=== PATIENT | male | born 1945 | race Hispanic/Latino ===

== ENCOUNTER 2017-01-11 22:11 | Emergency (ER) | payer MEDICARE ==
[2017-01-12 00:48] LABS: Bilirubin,Urine NEG (Negative); Blood,Urine NEG (Negative); Ketones,Urine TR mg/dL (Negative); Leukocyte Esterase,Urine NEG (Negative); Mucus,Urine FEW /HPF; Nitrite,Urine NEG (Negative); Protein,Urine <15 mg/dL mg/dL (Negative); Urobilinogen,Urine < 2.0 mg/dL (<2.0)
[2017-01-12 04:49] LABS: Basophils % (Auto) 0.9 % (0.0-1.8); Eosinophils % (Auto) 2.8 % (0.0-4.3); Hemoglobin 15.3 gm/dl (11.8-15.2); Mean Corpuscular HGB Conc 33 % (32-34); Mean Corpuscular Hemoglobin 29 pg (28-32); Mean Corpuscular Volume 87 fl (84-94); Red Blood Count 5.32 M/mm3 (3.65-5.03); Red Cell Distribution Width 14.3 % (13.2-15.2); White Blood Count 6.8 K/mm3 (4.5-11.0)
[2017-01-12 05:11] LABS: Alanine Aminotransferase 15 units/L (7-56); Albumin 4.2 g/dL (3.9-5); Albumin/Globulin Ratio 1.6 %; Alkaline Phosphatase 81 units/L (35-129); Anion Gap 20 mmol/L; BUN/Creatinine Ratio 11; Blood Urea Nitrogen 10 mg/dL (9-20); Calcium 8.9 mg/dL (8.4-10.2); Carbon Dioxide 25 mmol/L (22-30); Chloride 97.1 mmol/L (98-107); Glucose 100 mg/dL (75-100); Lipase 18 units/L (13-60); Potassium 3.7 mmol/L (3.6-5.0); Sodium 138 mmol/L (137-145); Total Protein 6.9 g/dL (6.3-8.2)
[2017-01-12 05:16] LABS: Platelet Count 135 K/mm3 (140-440)
[2017-01-12] MEDS ORDERED: ZOFRAN IV ONE (06:54)
[2017-01-12] MEDS ORDERED: NACL 0.9% 1000 ML 1,000 ML IV ONE (06:54)
[2017-01-12] MEDS ORDERED: NACL ONE (07:21)
--- NOTE | 2017-01-12 07:58 | Emergency Department Report ---
ED Abdominal Pain HPI - General Chief Complaint: Abdominal Pain Stated Complaint: ABD PAIN Time Seen by Provider: 01/12/17 06:03 Source: patient Mode of arrival: Ambulatory Limitations: No Limitations - History of Present Illness Initial Comments: 71-year-old male with a past medical history previous CVA with residual left arm weakness, seizures, enlarged prostate, previous cholecystectomy and right inguinal hernia repair presents to Hospital complaints of nausea and possible constipation. Patient denies actual abdominal pain. He's had been nauseated with intermittent vomiting that started this morning. Patient can't remember the last time he had a bowel movement. No reports of fever, melena, hematochezia, or hematemesis. Per EMS note patient states he had pain in the center of his stomach that started yesterday. Patient also complains of reflux symptoms. PMD: Dr. Grace - Related Data Home Medications Medication Instructions Recorded Confirmed Last Taken Fluticasone/Vilanterol [Breo 1 each IH QDAY 09/06/16 12/11/16 Unknown Ellipta 100-25 Mcg INH] Previous Rx's Medication Instructions Recorded Last Taken Type Tamsulosin [Flomax] 0.4 mg PO QDAY #30 capsule 03/02/15 Unknown Rx levETIRAcetam [Keppra TAB] 750 mg PO BID #60 tablet 03/02/15 Unknown Rx Aspirin [Aspirin BABY CHEW TAB] 81 mg PO QDAY #30 tab.chew 09/08/16 Unknown Rx HYDROcodone/APAP 5-325 [Gerlaw 1 each PO Q6HR PRN #7 tablet 09/08/16 Unknown Rx 5-325 mg TAB] AtorvaSTATin [Lipitor] 40 mg PO QHS tablet 12/12/16 Unknown Rx Mirtazapine [Remeron] 15 mg PO QHS tablet 12/12/16 Unknown Rx Mag Hydrox/Aluminum Hyd/Simeth 20 ml PO QID PRN #1 bottle 01/12/17 Unknown Rx [Maalox Advanced Suspension] Ondansetron [Zofran Odt] 4 mg PO Q8HR PRN #20 tab.rapdis 01/12/17 Unknown Rx Polyethylene Glycol 3350 [Miralax 17 gm PO QDAY PRN #7 packet 01/12/17 Unknown Rx 3350] Allergies Allergy/AdvReac Type Severity Reaction Status Date / Time nitrofurazone [From Furacin] Allergy Rash Verified 11/20/12 03:43 ED Review of Systems ROS: Stated complaint: ABD PAIN Other details as noted in HPI Comment: All other systems reviewed and negative Other: Constitutional: No fevers chills Eyes: No eye pain visual changes ENT: No ear pain or throat pain Neck: Denies pain Respiratory: Denies cough wheezing shortness of breath Cardiovascular: Denies chest pain, palpitations, syncope GI: As per HPI : Denies dysuria Musculoskeletal: Denies back pain Skin: Denies rash, lesions, erythema Neurologic: Denies headache, numbness, weakness Psychiatric: Denies suicidal ideation, hallucinations ED Past Medical Hx - Past Medical History Previous Medical History?: Yes Hx CVA: Yes (L sided deficits) Hx Seizures: Yes Hx HIV: No Additional medical history: urinary problems at times, enlarged prostate - Surgical History Past Surgical History?: Yes Hx Cholecystectomy: Yes Additional Surgical History: back surgery ankle surgery hernia repairs - Social History Smoking Status: Current Every Day Smoker Substance Use Type: None - Medications Home Medications: Home Medications Medication Instructions Recorded Confirmed Last Taken Type Tamsulosin [Flomax] 0.4 mg PO QDAY #30 capsule 03/02/15 12/08/16 Unknown Rx levETIRAcetam [Keppra TAB] 750 mg PO BID #60 tablet 03/02/15 12/08/16 Unknown Rx Fluticasone/Vilanterol [Breo 1 each IH QDAY 09/06/16 12/11/16 Unknown History Ellipta 100-25 Mcg INH] Aspirin [Aspirin BABY CHEW TAB] 81 mg PO QDAY #30 tab.chew 09/08/16 12/11/16 Unknown Rx HYDROcodone/APAP 5-325 [Gerlaw 1 each PO Q6HR PRN #7 tablet 09/08/16 12/08/16 Unknown Rx 5-325 mg TAB] AtorvaSTATin [Lipitor] 40 mg PO QHS tablet 12/12/16 Unknown Rx Mirtazapine [Remeron] 15 mg PO QHS tablet 12/12/16 Unknown Rx Mag Hydrox/Aluminum Hyd/Simeth 20 ml PO QID PRN #1 bottle 01/12/17 Unknown Rx [Maalox Advanced Suspension] Ondansetron [Zofran Odt] 4 mg PO Q8HR PRN #20 tab.rapdis 01/12/17 Unknown Rx Polyethylene Glycol 3350 [Miralax 17 gm PO QDAY PRN #7 packet 01/12/17 Unknown Rx 3350] ED Physical Exam - General Limitations: No Limitations - Other Other exam information: General: No limitations, patient is alert in no acute distress Head exam: Atraumatic, normocephalic Eyes exam: Normal appearance, nonicteric sclerae ENT: Moist mucous membrane, normal oropharynx Neck exam: Normal inspection, full range of motion, no meningismus nontender Respiratory exam: Clear to auscultation bilateral, no wheezes, rales, crackles Cardiovascular: Normal rate and rhythm, normal heart sounds Abdomen: Soft, nondistended, and nontender, with normal bowel sounds, no rebound, or guarding. Right lower inguinal surgical scar noted Extremity: Full range of motion normal inspection no deformity Back: Normal Inspection, full range of motion, no tenderness Neurologic: Alert, oriented x3, cranial nerves intact, contracted left arm with limited movement secondary to previous CVA. 5/5 right sided upper and lower extremity strength, 4+/5 left lower extremity Psychiatric: normal affect, normal mood Skin: Warm, dry, intact ED Course Vital Signs 01/11/17 01/12/17 01/12/17 22:57 06:35 08:10 Temperature 97.6 F 97.7 F Pulse Rate 96 H 76 Respiratory 18 20 16 Rate Blood Pressure 120/71 Blood Pressure 124/75 [Right] O2 Sat by Pulse 97 98 Oximetry - Reevaluation(s) Reevaluation #1: 01/12/17 08:52 Patient treated with normal saline and Zofran ED Medical Decision Making - Lab Data Result diagrams: 01/11/17 Unknown 01/11/17 Unknown Lab Results 01/11/17 01/11/17 01/12/17 Range/Units Unknown Unknown 00:10 WBC 6.8 (4.5-11.0) K/mm3 RBC 5.32 H (3.65-5.03) M/mm3 Hgb 15.3 H (11.8-15.2) gm/dl Hct 46.0 H (35.5-45.6) % MCV 87 (84-94) fl MCH 29 (28-32) pg MCHC 33 (32-34) % RDW 14.3 (13.2-15.2) % Plt Count 135 L (140-440) K/mm3 Lymph % (Auto) 19.8 (13.4-35.0) % Morton % (Auto) 8.5 H (0.0-7.3) % Eos % (Auto) 2.8 (0.0-4.3) % Baso % (Auto) 0.9 (0.0-1.8) % Lymph # 1.3 (1.2-5.4) K/mm3 Morton # 0.6 (0.0-0.8) K/mm3 Eos # 0.2 (0.0-0.4) K/mm3 Baso # 0.1 (0.0-0.1) K/mm3 Seg Neutrophils % 68.0 (40.0-70.0) % Seg Neutrophils # 4.6 (1.8-7.7) K/mm3 Sodium 138 (137-145) mmol/L Potassium 3.7 (3.6-5.0) mmol/L Chloride 97.1 L (98-107) mmol/L Carbon Dioxide 25 (22-30) mmol/L Anion Gap 20 mmol/L BUN 10 (9-20) mg/dL Creatinine 0.9 (0.8-1.5) mg/dL Estimated GFR > 60 ml/min BUN/Creatinine Ratio 11 % Glucose 100 (75-100) mg/dL Calcium 8.9 (8.4-10.2) mg/dL Total Bilirubin 0.70 (0.1-1.2) mg/dL AST 18 (5-40) units/L ALT 15 (7-56) units/L Alkaline Phosphatase 81 (35-129) units/L Total Protein 6.9 (6.3-8.2) g/dL Albumin 4.2 (3.9-5) g/dL Albumin/Globulin Ratio 1.6 % Lipase 18 (13-60) units/L Urine Color Yellow (Yellow) Urine Turbidity Clear (Clear) Urine pH 6.0 (5.0-7.0) Ur Specific [place] 1.026 (1.003-1.030) Urine Protein <15 mg/dl (Negative) mg/dL Urine Glucose (UA) Neg (Negative) mg/dL Urine Ketones Tr (Negative) mg/dL Urine Blood Neg (Negative) Urine Nitrite Neg (Negative) Urine Bilirubin Neg (Negative) Urine Urobilinogen < 2.0 (<2.0) mg/dL Ur Leukocyte Esterase Neg (Negative) Urine WBC (Auto) 2.0 (0.0-6.0) /HPF Urine RBC (Auto) 2.0 (0.0-6.0) /HPF U Epithel Cells (Auto) < 1.0 (0-13.0) /HPF Urine Mucus Few /HPF - Radiology Data Radiology results: report reviewed CT abdomen and pelvis IV contrast only: no acute abdominal process. A large prostate with diffuse bladder wall thickening. Trabeculation versus cystitis. Diverticulosis of the distal colon. Osteopenia and degenerative changes - Medical Decision Making No acute abdominal processes identified on CT and unremarkable labs. Patient is nontender on exam. Patient treated with IV fluids and Zofran. We'll discharge home medication to take as needed for indigestion and constipation. - Differential Diagnosis constipation, pancreatitis, biliary colic, obstruction Critical Care Time: No Critical care attestation.: If time is entered above; I have spent that time in minutes in the direct care of this critically ill patient, excluding procedure time. ED Disposition Clinical Impression: Nausea, Thrombocytopenia, Diverticulosis Disposition: TO HOME OR SELFCARE Is pt being admited?: No Does the pt Need Aspirin: No Condition: Stable Instructions: Acute Nausea and Vomiting (ED), Diverticulosis (ED), Thrombocytopenia (ED) Additional Instructions: Follow with your primary care doctor for further evaluation and to recheck uopir blood work to ensure that your platelet level has improved. Take the medication as prescribed and as needed. Please return if symptoms worsen as indicated by your discharge instructions. Prescriptions: Mag Hydrox/Aluminum Hyd/Simeth [Maalox Advanced Suspension] 20 ml PO QID PRN #1 bottle PRN Reason: Indigestion Ondansetron [Zofran Odt] 4 mg PO Q8HR PRN #20 tab.rapdis PRN Reason: Nausea And Vomiting Polyethylene Glycol 3350 [Miralax 3350] 17 gm PO QDAY PRN #7 packet PRN Reason: Constipation Referrals: AMARILIS GRACE MD [Primary Care Provider] - 3-5 Days Time of Disposition: 08:58
[2017-01-12 08:11] VITALS: BP 124/75
--- NOTE | 2017-01-12 08:16 | Cat Scan Report ---
CT ABDOMEN PELVIS WITH CONTRAST: HISTORY: abdominal pain. COMPARISON: No relevant comparison. TECHNIQUE: Helical CT in 1.25mm intervals following IV contrast. Sagittal and coronal reconstructions. FINDINGS: Lung bases: Well aerated. Normal heart size. Liver: normal. Biliary system: Cholecystectomy changes are evident. No biliary dilatation. Pancreas: normal. Spleen: normal. Kidneys/ureters/bladder: The kidneys are within normal limits with a few tiny simple appearing cysts. The ureters are normal course and caliber. There is moderate enlargement of the prostate gland. The bladder is partially distended with diffuse bladder wall thickening which probably represents trabeculation. Cystitis could be considered. Adrenal glands: normal. Aorta: normal. Intestines: No oral contrast was administered which limits evaluation. There are a few scattered diverticula in the distal colon but no evidence for acute inflammatory changes, obstruction or focal bowel wall thickening. Appendix: Not identified. Musculoskeletal: Osteopenia and degenerative changes kyphoplasty changes at L2. No acute fracture or suspicious bony lesion identified. IMPRESSION: No acute abdominal process identified. Enlarged prostate gland with diffuse bladder wall thickening. Trabeculation versus cystitis. Diverticulosis of the distal colon. Osteopenia and degenerative changes.
== END 2017-01-12 19:24 | disposition home or self-care (01) ==
LOC: ED 22:11
DX: K57.90 Diverticulosis of intestine, part unspecified, without perforation or abscess without bleeding (principal); D69.6 Thrombocytopenia, unspecified; F17.200 Nicotine dependence, unspecified, uncomplicated; Z90.49 Acquired absence of other specified parts of digestive tract; Z86.73 Personal history of transient ischemic attack (TIA), and cerebral infarction without residual deficits
CPT/HCPCS: 36415; 74177; 80048; 80053; 81001; 83690; 85025; 96361; 96374; 99284; J2405; J7030; Q9967